=== PATIENT | male | born 1965 | race African-American/Black ===

== ENCOUNTER 2021-10-31 22:10 | Emergency (ER) | payer BC, OTHER ==
[~2021-10-31] VITALS: Ht 182.9 cm; Wt 113.4 kg
[2021-10-31] MEDS ORDERED: OXYCODONE W/ ACETAMINOPHEN 5/325MG TABLET PO ONE (22:45)
[2021-11-01 01:22] VITALS: BP 155/99
[2021-11-01] MEDS ORDERED: PERCOT PO (03:23)
[2021-11-01] MEDS ORDERED: ONDA-144 PO (03:23)
== END 2021-11-01 04:31 | disposition home or self-care (01) ==
LOC: ER 22:13
DX: S62.304A Unspecified fracture of fourth metacarpal bone, right hand, initial encounter for closed fracture (principal); S62.306A Unspecified fracture of fifth metacarpal bone, right hand, initial encounter for closed fracture; V43.52XA Car driver injured in collision with other type car in traffic accident, initial encounter; Y93.89 Activity, other specified; Y92.410 Unspecified street and highway as the place of occurrence of the external cause; Y99.8 Other external cause status
CPT/HCPCS: 29125; 70450; 71045; 73110; 74176

== ENCOUNTER 2024-11-01 09:52 | Inpatient (IN) | payer BC, MEDICAID ==
[~2024-11-01] VITALS: Ht 185.4 cm; Wt 103.9 kg
[~2024-11-01 09:52] MED LIST: ONDA-144 PO; PERCOT PO
--- NOTE | 2024-11-01 10:20 | ED.PDOC ---
General HPI Comments 59 year old male presents to the ED with a chief complaint of LT flank pain onset 3 days. Patient state he has been experiencing LT flank pain radiates to LT back, LLQ for the past 3 days. He has also been experiencing hematuria, dysuria, diarrhea, loss of appetite. PMHx HTN. Denies nausea, vomiting, chest pain, shortness of breath, dizziness, fever, chills. No other symptoms or modifying factors present at this time. Chief Complaint: Abdominal Pain Time Seen by MD: 10:14 Reviewed notes: Medications, Allergies Allergies: Coded Allergies: NO KNOWN ALLERGIES (Unverified , 11/01/24) Home Meds Active Scripts Ondansetron (Zofran) 4 Mg Tab, 4 MG PO BID for 7 Days, #14 MG Prov:ALBANIA GARCÍA MD 11/01/21 Oxycodone W/ Acetaminophen (Percocet 5/325MG) 1 Tab Tb, 1 TAB PO BID for 7 Days, #14 TAB Prov:ALBANIA GARCÍA MD 11/01/21 Information Source: Patient, Spouse Mode of Arrival: Ambulatory Severity: Moderate Timing: Days Duration: Since onset Prehospital treatment: None Onset: Spontaneous Symptoms: Dysuria, Hematuria History of: None Location: (L)Flank Penile discharge: None Modifying factors: None associated signs and symptoms: Abdominal Pain, Flank Pain, Back Pain, Dysuria, Hematuria Past Medical History PAST MEDICAL HISTORY: HTN Surgical History: Denies all surgeries Family History Family History: Reviewed,noncontributory to illness Social History Smoker: Non-Smoker Alcohol: Denies ETOH Use Drugs: Denies Drug Use Lives In: Home Constitutional: denies: chills, diaphoresis, fatigue, fever, malaise, sweats, weakness, others EENTM: denies: blurred vision, double vision, ear bleeding, ear discharge, ear drainage, ear pain, ear ringing, eye pain, eye redness, hearing loss, mouth pain, mouth swelling, nasal discharge, nose bleeding, nose congestion, nose pain, photophobia, tearing, throat pain, throat swelling, voice changes, others Respiratory: denies: cough, hemoptysis, orthopnea, SOB at rest, shortness of breath, SOB with excertion, stridor, wheezing, others Cardiovascular: denies: chest pain, dizzy spells, diaphoresis, Dyspnea on exertion, edema, irregular heart beat, left arm pain, lightheadedness, palpitations, PND, syncope, others Gastrointestinal: reports: abdominal pain, diarrhea, poor appetite; denies: abdomen distended, blood streaked bowels, constipated, dysphagia, difficulty swallowing, hematemesis, melena, nausea, poor fluid intake, rectal bleeding, rectal pain, vomiting, others Genitourinary: reports: dysuria, flank pain (LT), hematuria; denies: burning, frequency, incontinence, penile discharge, penile sore, pain, testicle pain, testicle swelling, urgency, others Neurological: denies: dizziness, fainting, headache, left sided numbness, left sided weakness, numbness, paresthesia, pre-existing deficit, right sided numbness, right sided weakness, seizure, speech problems, tingling, tremors, weakness, others Musculoskeletal: reports: back pain; denies: gout, joint pain, joint swelling, muscle pain, muscle stiffness, neck pain, others Integumetry: denies: bruises, change in color, change in hair/nails, dryness, laceration, lesions, lumps, rash, wounds, others Allergic/Immunocompromised: denies: Difficulty Healing, Frequent Infections, Hives, Itching, others Hematologic/Lymphatic: denies: anemia, blood clots, easy bleeding, easy bruising, swollen glands, others Endocrine: denies: excessive hunger, excessive sweating, excessive thirst, excessive urination, flushing, intolerance to cold, intolerance to heat, unexplained weight gain, unexplained weight loss, others Psychiatric: denies: anxiety, bipolar disorder, depression, hopeless, panic disorder, schizophrenia, sleepless, suicidal, others All Other Systems: Reviewed and Negative Physical Exam General Appearance: Moderate Distress HEENT: Normal ENT Inspection, Pharynx Normal, TMs Normal Neck: Full Range of Motion, Non-Tender, Normal, Normal Inspection Respiratory: Chest Non-Tender, Lungs Clear, No Accessory Muscle Use, No Respiratory Distress, Normal Breath Sounds Cardiovascular: No Edema, No JVD, No Murmur, No Gallop, Normal Peripheral Pulses, Regular Rate/Rhythm Breast Exam: Deferred Gastrointestinal: LLQ, LUQ, No Organomegaly, No Pulsatile Mass, Normal Bowel Sounds, Soft, Tenderness Genitalia: Deferred Pelvic: Deferred Rectal: Deferred Extremities: No calf tenderness, Normal capillary refill, Normal inspection, Normal range of motion, Non-tender, No pedal edema Musculoskeletal : Apperance: Normal Neurologic: Alert, 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 Was a procedure done?: No Differential Diagnosis Kidney stone (Female): N/A Kidney stone (Male): Cholangitis, Pancreatitis, Renal failure, Strain, Urinary obstruction, Urolithiasis X-Ray, Labs, Meds, VS Vital Signs Date Time Temp Pulse Resp B/P (MAP) Pulse Ox O2 Delivery O2 Flow Rate FiO2 11/01/24 10:20 98.9 54 17 149/70 (96) 98 98.9 Lab Test 11/01/24 10:30 Range/Units White Blood Count 8.3 4.4-10.8 10^3/uL Red Blood Count 5.15 4.5-5.90 10^6/uL Hemoglobin 15.4 13.5-17.5 g/dL Hematocrit 45.1 41.0-53.0 % Mean Corpuscular Volume 87.6 80.0-100.0 fL Mean Corpuscular Hemoglobin 30.0 28.0-32.0 pg Mean Corpuscular Hemoglobin Concent 34.2 32.0-36.0 g/dL Red Cell Distribution Width 13.5 11.8-14.3 % Platelet Count 227 140-450 10^3/uL Mean Platelet Volume 9.0 6.9-10.8 fL Neutrophils (%) (Auto) 67.7 37.0-80.0 % Lymphocytes (%) (Auto) 19.3 10.0-50.0 % Monocytes (%) (Auto) 12.4 H 0.0-12.0 % Eosinophils (%) (Auto) 0.0 0.0-7.0 % Basophils (%) (Auto) 0.6 0.0-2.0 % Neutrophils # (Auto) 5.6 1.6-8.6 10 ^3/uL Lymphocytes # (Auto) 1.6 0.4-5.4 10 ^3/uL Monocytes # (Auto) 1.0 0-1.3 10 ^3/uL Eosinophils # (Auto) 0 0-0.8 10 ^3/uL Basophils # (Auto) 0 0-0.2 10 ^3/uL Nucleated Red Blood Cells 0.1 % Sodium Level 135 L 136-145 mmol/L Potassium Level 3.0 L 3.5-5.1 mmol/L Chloride Level 98 98-107 mmol/L Carbon Dioxide Level 27 20-31 mmol/L Anion Gap 10 5-15 Blood Urea Nitrogen 14 9-23 mg/dL Creatinine 1.24 0.700-1.30 mg/dL Glomerular Filtration Rate Calc 67 >90 mL/min BUN/Creatinine Ratio 11.3 10.0-20.0 Serum Glucose 120 H 74-106 mg/dL Calcium Level 9.3 8.7-10.4 mg/dL Total Bilirubin 0.6 0.2-1.0 mg/dL Aspartate Amino Transferase (AST) 27 13-40 U/L Alanine Aminotransferase (ALT) 52 H 7-40 U/L Alkaline Phosphatase 66 46-116 U/L Total Protein 7.9 5.7-8.2 g/dL Albumin 4.8 3.2-4.8 g/dL Current Medications Medications (Trade) Dose Ordered Sig/Conrado Route Start Time Stop Time Status Last Admin Ondansetron HCl (Zofran) 4 mg ONCE ONCE IV 11/01/24 10:30 11/01/24 10:31 DC 11/01/24 11:09 Sodium Chloride 1,000 ml @ 1,000 mls/hr Q1H ONCE IVB 11/01/24 10:30 11/01/24 11:29 DC 11/01/24 11:08 Ketorolac Tromethamine (Toradol Injection) 30 mg ONCE ONCE IV 11/01/24 10:30 11/01/24 10:31 DC 11/01/24 11:08 The patient's CBC is within normal limits The chemistry panel shows hypokalemia at 3.0 The patient was being given potassium IV piggyback The patient was given Zofran 4 mg IV push for the nausea and vomiting The patient was also given ketorolac 30 mg IV push for the pain The patient was bolused with normal saline at 1 L bolus The CAT scan of the abdomen and pelvis shows: IMPRESSION: 1. No acute abdominal or pelvic findings. No hydronephrosis or nephrolithiasis. Sludge in the gallbladder. Subcentimeter right lower quadrant lymph nodes. Mildly prominent bilateral inguinal lymph nodes. Findings are nonspecific. Clinical correlation and continued follow-up is recommended. At this time, the patient was being admitted Images Reviewed?: Images reviewed and evaluated by me Time of 1ST Reevaluation: 10:44 Reevaluation 1ST: Unchanged Patient Education/Counseling: Diagnosis, Treatment, Prognosis Family Education/Counseling: Diagnosis, Treatment, Prognosis Additional Information The following tests were ordered, and results were reviewed by me: CBC, CMP, UA, CT AB PEL WO CON Additional Information was gathered from interviewing the following independent historians: I reviewed and agreed with the following test results read by other providers: CT AB PEL WO CON I discussed treatment and results with medical personnel and: patient, Comprehensive systems review obtained and negative except for what is stated in the HPI. Departure 1 Departure Time of Disposition: 12:01 Impression: Primary Impression: Intractable abdominal pain Additional Impressions: Abdominal pain of unknown etiology Hypokalemia Disposition: ADMITTED INPATIENT Admit to: Med Surg Condition: Fair Critical Care Note Critical Care Time?: No Stability Stability form required: Yes Unstable for transfer: ED Physician Assesment (Clinical assesment) Heart Score Heart Score: Heart Score Response (Comments) Value History N/A 0 EKG N/A 0 Age N/A 0 Risk Factors N/A 0 Troponin N/A 0 Total 0 I personally scribed for EUNICE KELLY MD (ADAM) on 11/01/24 at 10:20. Electronically submitted by Augustina Castor ([email or web address]). I personally scribed for EUNICE KELLY MD ([email or web address]) on 11/01/24 at 10:33. Electronically submitted by Augustina Castro ([email or web address]). I personally scribed for EUNICE KELLY MD ([email or web address]) on 11/01/24 at 10:34. Electronically submitted by Augustina Castro ([email or web address]). EUNICE KELLY MD Nov 01, 2024 10:20
[2024-11-01 10:45] LABS: Basophils # (auto) 0 10 ^3/uL (0-0.2); Basophils % (auto) 0.6 % (0.0-2.0); Eosinophils # (auto) 0 10 ^3/uL (0-0.8); Hematocrit 45.1 % (41.0-53.0); Hemoglobin 15.4 g/dL (13.5-17.5); Lymphocytes # (auto) 1.6 10 ^3/uL (0.4-5.4); Lymphocytes % (auto) 19.3 % (10.0-50.0); Mean Corpuscular Hgb Conc. 34.2 g/dL (32.0-36.0); Mean Corpuscular Volume 87.6 fL (80.0-100.0); Monocytes % (auto) 12.4 % (0.0-12.0); Neutrophils # (auto) 5.6 10 ^3/uL (1.6-8.6); Neutrophils % (auto) 67.7 % (37.0-80.0); Nucleated Red Blood Cells % 0.1 %; Platelet Count (auto) 227 10^3/uL (140-450); Red Blood Cells 5.15 10^6/uL (4.5-5.90); Red Cell Distribution Width 13.5 % (11.8-14.3); White Blood Cell 8.3 10^3/uL (4.4-10.8)
--- NOTE | 2024-11-01 11:02 | DVH ---
Exam: CT CT AB PEL WO CON-NO ORAL OR IV History: Left flank pain and left lower quadrant pain Comparison Study: 10/31/2021 Technique: Multidetector spiral CT of the abdomen and pelvis was performed from lung bases to pubic symphysis. Imaging was performed without IV contrast. Axial, coronal and sagittal multiplanar reform ats were obtained from the axial data set by the technologist. Radiation dose : Abdomen/Pelvis: CTDIvol 21.48 mGy, DLP 1150.73 mGy*cm. Findings: Evaluation of solid organs is limited due to lack of intravenous contrast use. Lung Bases: No acute or significant lung base finding. Normal heart size. No pleural or pericardial effusion. Liver: The liver is normal in size. No focal lesions. Gallbladder and biliary Tree: Sludge in the gallbladder. Spleen: Unremarkable Pancreas: The pancreas is grossly normal in appearance. Adrenal Glands: Unremarkable Kidneys: Kidneys are grossly normal without calculi or hydronephrosis. Bladder: Grossly unremarkable for degree of distention. Bowel: The stomach is grossly normal in appearance. Small bowel and colon are normal in caliber and d istribution. The appendix is not visualized; however, no secondary findings of acute appendicitis nikko ntified. Ascites: Absent Lymphadenopathy: Subcentimeter right lower quadrant lymph nodes. Mildly prominent bilateral inguinal lymph nodes. Abdominal wall and Mesentery: Unremarkable. Vasculature: The visualized abdominal aorta is normal in size and caliber. Evaluation of abdominal a nd pelvic vessels is limited due to lack of intravenous contrast. Pelvic Organs: Unremarkable Musculoskeletal: No aggressive focal bony lesions, acute fractures or dislocation. IMPRESSION: 1. No acute abdominal or pelvic findings. No hydronephrosis or nephrolithiasis. Sludge in the gallbl adder. Subcentimeter right lower quadrant lymph nodes. Mildly prominent bilateral inguinal lymph no roula. Findings are nonspecific. Clinical correlation and continued follow-up is recommended. Radiation optimization: All CT scans at this facility use at least one of these dose optimization vinh hniques: Automated exposure control mA and/or kV adjustment per patient size (includes targeted exams where dose is matched to clinical indication) or iterative reconstruction. HS:Y
[2024-11-01 11:03] LABS: Alkaline Phosphatase 66 U/L (46-116); Anion Gap 10 (5-15); Aspartate Aminotransferase 27 U/L (13-40); BUN/Creatinine Ratio 11.3 (10.0-20.0); Blood Urea Nitrogen 14 mg/dL (9-23); Calcium 9.3 mg/dL (8.7-10.4); Carbon Dioxide 27 mmol/L (20-31); Chloride 98 mmol/L (98-107); Total Protein 7.9 g/dL (5.7-8.2)
[2024-11-01 11:04] LABS: Alanine Aminotransferase 52 U/L (7-40); Albumin 4.8 g/dL (3.2-4.8); Bilirubin, Total 0.6 mg/dL (0.2-1.0); Glucose 120 mg/dL (74-106); Sodium 135 mmol/L (136-145)
[2024-11-01] MEDS: KETOROLAC TROMETH 30 MG/ML 1ML VIAL IV ONE (11:08)
[2024-11-01] MEDS: SODIUM CHLORIDE 0.9% 1,000 ML IVB ONE (11:08)
[2024-11-01] MEDS: ONDANSETRON HCL 4 MG/2 ML VIAL IV ONE (11:09)
[2024-11-01 12:05] VITALS: PULSE 46; RESP 16; O2SAT 97
[2024-11-01] MEDS: MORPHINE SULFATE 4 MG/ML SYR/VIAL IV ONE (12:05)
[2024-11-01] MEDS ORDERED: POTASSIUM CHL 20MEQ/100ML 100 ML IV ONE (12:15)
[2024-11-01 12:36] LABS: Urine Bacteria None Seen /hpf (None Seen)
[2024-11-01 12:55] LABS: Urine Blood 1+ /uL (Negative); Urine Clarity Clear (Clear); Urine Color Yellow (Yellow); Urine Mucus FEW (None Seen); Urine Protein, UAD TRACE (Negative); Urine Specific Gravity 1.019 (1.001-1.035); Urine Squamous Epithelial Cell FEW /hpf (<5); Urine Urobilinogen Normal (Negative); Urine WBC 7 /HPF (0-3)
--- NOTE | 2024-11-01 21:51 | DVHHPRES ---
History of Present Illness Resident Creating Document: MADISYN CARBAJAL RESIDENT History of Present Illness This is a 59-year-old male with past medical history of syphilis at the age of 17, hypertension and prediabetes who presented to the ER with a chief complaint of left-sided flank pain for the past 3 days. Patient reports left-sided flank pain which is sharp starting denied of Thursday while he was doing his routine work, pain radiates from the back to the flank and then the front of the abdomen. Associated with hematuria which was fresh red, otherwise urine is dark yellowish in color. Also says that he has been having nausea, dizziness, chills, dysuria, frequency but denies any incontinence, fever or vomiting. Patient also reports that it hurts in his flank and groin when he has intercourse, but denies any history of STIs or any purulent discharge, patient is monogamous with his . He was seeing multiple partners 13 years ago. He has also been experiencing diarrhea watery 3 episodes in the past 2 days along with dry itchy skin. On arrival to the ER, patient's pulse was 54 bpm, blood pressure 165/76 mmHg, potassium was 3. CT abdomen pelvis showed gallbladder sludge. Right lower quadrant subcentimeter lymph nodes and bilateral inguinal lymph nodes Past medical history: syphilis at the age of 17, hypertension and prediabetes Social history: Lives with , Unemployed, denies smoking, drinks socially, no illicit drug use Home medications amlodipine 10 mg PCP: None Patient seen and examined in the ER. Has left-sided costovertebral tenderness. Kidney ultrasound ordered Smoke: No ALCOHOL: occassional Drugs: None Lives: with Family Review of Systems Constitutional: Yes: Chills, Weakness Gastrointestinal: Nausea, Vomiting, Abdominal Pain Genitourinary: Dysuria, Frequency, Hematuria Skin: Other (Dry itchy skin) Allergies: Coded Allergies: NO KNOWN ALLERGIES (Unverified , 11/01/24) Exam Vital Signs Vital Signs Date Time Temp Pulse Resp B/P (MAP) Pulse Ox O2 Delivery O2 Flow Rate FiO2 11/01/24 12:05 46 16 97 Room Air* 0 21 11/01/24 12:05 165/76 (105) 11/01/24 10:20 98.9 98.9 Exam Patient lying in bed, in no acute distress General: Well-built, afebrile, palor, mucosae are moist Cardiovascular: Regular S1 and S2. No murmurs, gallops or rubs. No JVD elevation. Bilateral 2+ pitting edema Respiratory: Bibasilar crackles heard. Saturating 96 on room air Abdomen: Soft, nontender, nondistended, normoactive bowel sounds, no rebound tenderness, no organomegaly, no masses. Patient has costovertebral angle tenderness of the left Genitourinary: Deferred MSK/skin: Mobilizes 4 limbs. Skin is dry and warm Neurological: No motor, no sensitive deficits, normal speech. Pupils are isocoric and reactive. Psych/Mental Status: A/Ox3 Labs/Xrays Labs Test 11/01/24 10:30 11/01/24 10:19 Range/Units White Blood Count 8.3 4.4-10.8 10^3/uL Red Blood Count 5.15 4.5-5.90 10^6/uL Hemoglobin 15.4 13.5-17.5 g/dL Hematocrit 45.1 41.0-53.0 % Mean Corpuscular Volume 87.6 80.0-100.0 fL Mean Corpuscular Hemoglobin 30.0 28.0-32.0 pg Mean Corpuscular Hemoglobin Concent 34.2 32.0-36.0 g/dL Red Cell Distribution Width 13.5 11.8-14.3 % Platelet Count 227 140-450 10^3/uL Mean Platelet Volume 9.0 6.9-10.8 fL Neutrophils (%) (Auto) 67.7 37.0-80.0 % Lymphocytes (%) (Auto) 19.3 10.0-50.0 % Monocytes (%) (Auto) 12.4 H 0.0-12.0 % Eosinophils (%) (Auto) 0.0 0.0-7.0 % Basophils (%) (Auto) 0.6 0.0-2.0 % Neutrophils # (Auto) 5.6 1.6-8.6 10 ^3/uL Lymphocytes # (Auto) 1.6 0.4-5.4 10 ^3/uL Monocytes # (Auto) 1.0 0-1.3 10 ^3/uL Eosinophils # (Auto) 0 0-0.8 10 ^3/uL Basophils # (Auto) 0 0-0.2 10 ^3/uL Nucleated Red Blood Cells 0.1 % Sodium Level 135 L 136-145 mmol/L Potassium Level 3.0 L 3.5-5.1 mmol/L Chloride Level 98 98-107 mmol/L Carbon Dioxide Level 27 20-31 mmol/L Anion Gap 10 5-15 Blood Urea Nitrogen 14 9-23 mg/dL Creatinine 1.24 0.700-1.30 mg/dL Glomerular Filtration Rate Calc 67 >90 mL/min BUN/Creatinine Ratio 11.3 10.0-20.0 Serum Glucose 120 H 74-106 mg/dL Calcium Level 9.3 8.7-10.4 mg/dL Total Bilirubin 0.6 0.2-1.0 mg/dL Aspartate Amino Transferase (AST) 27 13-40 U/L Alanine Aminotransferase (ALT) 52 H 7-40 U/L Alkaline Phosphatase 66 46-116 U/L Total Protein 7.9 5.7-8.2 g/dL Albumin 4.8 3.2-4.8 g/dL Urine Color Yellow Yellow Urine Clarity Clear Clear Urine pH 6.0 5.0-9.0 Urine Specific [place] 1.019 1.001-1.035 Urine Protein Trace H Negative Urine Ketones Negative Negative Urine Blood 1+ H Negative /uL Urine Nitrite Negative Negative Urine Bilirubin Negative Negative Urine Urobilinogen Normal Negative mg/dL Urine Leukocyte Esterase Negative Negative /uL Urine RBC 11 0 - 3 /hpf Urine Microscopic WBC 7 H 0-3 /HPF Urine Squamous Epithelial Cells Few <5 /hpf Urine Bacteria None seen None Seen /hpf Urine Mucus Few None Seen Urine Glucose Normal Normal mg/dL Assessment/Plan Assessment/Plan Suspected left-sided pyelonephritis secondary to acute cystitis Gallbladder sludge Inguinal lymphadenopathy Sinus bradycardia Hypertension Prediabetes mellitus - 5.8% Hypokalemia History of syphilis Vitamin D defeciency Plan: IV fluids, IV ceftriaxone 1 g daily, urine culture pending Follow up with the EKG, lipid panel, RPR/VDRL Supplemental electrolytes. Keep K greater than 4, Mag greater than 2 Abd U/S shows Hepatomegaly with diffuse hepatic steatosis. Gallbladder sludge. Kidney ultrasound shows Kidneys: The right kidney is 11.6 cm and the left kidney is 11.1 cm. No hydronephrosis, increased echogenicity, shadowing stone, or focal lesion. Continue medication amlodipine 10 mg daily Diet: Cardiac Lovenox 40 mg sc daily Plan discussed with patient in which all questions have been answered Goals of care discussed with the patient for more than 20 minutes, full code status Case discussed with Dr. Maier Plan discussed with: Patient Date of Service: Nov 01, 2024 Billing Provider: АНДРЕЙ MAIER MD Common Visit Codes: 27521-[id number] INP/OBS CARE (HIGH) MADISYN CARBAJAL RESIDENT Nov 01, 2024 21:51
[2024-11-01] MEDS ORDERED: POTASSIUM CHL 20 Meq TABLET PO SCH (22:30)
[2024-11-01] MEDS: POTASSIUM CHL 20 Meq TABLET PO ONE (22:46)
[2024-11-01] MEDS ORDERED: ACETAMINOPHEN 500 MG TAB or CAP PO PRN (23:00)
[2024-11-01] MEDS ORDERED: MORPHINE SULFATE INJ 2 MG/ml SYRG IV PRN (23:00)
[2024-11-01] MEDS ORDERED: KETOROLAC TROMETH 30 MG/ML 1ML VIAL IV PRN (23:00)
[2024-11-01] MEDS ORDERED: HYDROcodone-ACET 5/325MG TAB PO PRN (23:00)
[2024-11-01] MEDS ORDERED: ONDANSETRON HCL 4 MG/2 ML VIAL IV PRN (23:00)
[2024-11-01 23:25] LABS: Amphetamine Screen, Urine Neg (NEGATIVE); Barbiturate Scree,Urine Neg (NEGATIVE); Benzodiazephine Screen, Urine Neg (NEGATIVE); Cannabinoid Screen, Urine Neg (NEGATIVE); Cocaine Screen, Urine Neg (NEGATIVE); Opiate Scree,Urine Neg (NEGATIVE); Phencyclidine Screen, Urine Neg (NEGATIVE)
[2024-11-01] MEDS: amLODIPine BESYLATE 5 MG TAB PO ONE (23:42)
[2024-11-01 23:55] LABS: Albumin 4.8 g/dL (3.2-4.8); Bilirubin, Direct 0.1 mg/dL (<0.3); Bilirubin, Total 0.6 mg/dL (0.2-1.0); CRP High Sensitivity 0.2 mg/dL (<1.0); Total Protein 8.1 g/dL (5.7-8.2)
[2024-11-01 23:58] LABS: Magnesium 2.9 mg/dL (1.6-2.6)
[2024-11-02] VITALS (9 sets, daily range): BP systolic 100–117; BP diastolic 42–67; PULSE 41–76; RESP 16–18; TEMP 98.2–98.9; O2SAT 93–100
[2024-11-02 00:08] LABS: INR 1.05 (0.9-1.15); Partial Thromboplastin Time 25.4 SEC (24.5-34.5); Prothrombin Time 11.1 sec (9.3-11.8)
[2024-11-02] MEDS: cefTRIAXone 1GM/50ML D5W 50 ML IV ONE (00:12)
[2024-11-02 00:28] LABS: Erythrocyte Sedimentation Rate 4 mm/hr (0-20)
--- NOTE | 2024-11-02 01:23 | DVH ---
ABDOMINAL ULTRASOUND CLINICAL HISTORY: Gallbladder sludge TECHNIQUE: Multiple grayscale and color Doppler ultrasound images were obtained of the abdomen. WID: COMPARISON: CT abdomen and pelvis from earlier today FINDINGS: Liver and Biliary System: Increased echogenicity, normal size measuring 19.1 cm. No focal hepatic observations. No intrahepatic bile duct dilatation. The common duct measures 0.4 cm at the juan he patis. The gallbladder normal caliber without cholelithiasis or gallbladder wall thickening. There is sludge In the gallbladder Pancreas: Not well Seen due to overlying bowel gas. Kidneys: The right kidney is 11.6 cm and the left kidney is 11.1 cm. No hydronephrosis, increased echogenicity, shadowing stone, or focal lesion. IMPRESSION: 1. Hepatomegaly with diffuse hepatic steatosis. 2. Gallbladder sludge.
--- NOTE | 2024-11-02 02:05 | ECG ---
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
[2024-11-02 06:50] LABS: Basophils # (auto) 0 10 ^3/uL (0-0.2); Basophils % (auto) 0.4 % (0.0-2.0); Eosinophils # (auto) 0.1 10 ^3/uL (0-0.8); Eosinophils % (auto) 0.8 % (0.0-7.0); Hematocrit 42.1 % (41.0-53.0); Hemoglobin 14.5 g/dL (13.5-17.5); Lymphocytes # (auto) 2.3 10 ^3/uL (0.4-5.4); Lymphocytes % (auto) 29.5 % (10.0-50.0); Mean Corpuscular Hemoglobin 30.2 pg (28.0-32.0); Mean Corpuscular Hgb Conc. 34.4 g/dL (32.0-36.0); Mean Corpuscular Volume 87.8 fL (80.0-100.0); Monocytes % (auto) 12.8 % (0.0-12.0); Neutrophils # (auto) 4.4 10 ^3/uL (1.6-8.6); Neutrophils % (auto) 56.5 % (37.0-80.0); Nucleated Red Blood Cells % 0.1 %; Platelet Count (auto) 206 10^3/uL (140-450); Red Cell Distribution Width 13.5 % (11.8-14.3); White Blood Cell 7.9 10^3/uL (4.4-10.8)
[2024-11-02 07:38] LABS: Albumin 4.3 g/dL (3.2-4.8); Alkaline Phosphatase 59 U/L (46-116); Anion Gap 9 (5-15); Aspartate Aminotransferase 22 U/L (13-40); BUN/Creatinine Ratio 14.7 (10.0-20.0); Bilirubin, Total 0.5 mg/dL (0.2-1.0); Carbon Dioxide 25 mmol/L (20-31); Chloride 101 mmol/L (98-107); Glucose 106 mg/dL (74-106); Total Protein 6.9 g/dL (5.7-8.2)
[2024-11-02 07:41] LABS: Alanine Aminotransferase 42 U/L (7-40); Blood Urea Nitrogen 28 mg/dL (9-23); Potassium 3.4 mmol/L (3.5-5.1); Sodium 135 mmol/L (136-145)
[2024-11-02 07:51] LABS: Triglycerides 115 mg/dL (< 150)
[2024-11-02 07:52] LABS: LDL Cholesterol 83 mg/dL (< 100)
[2024-11-02 07:53] LABS: Cholesterol 140 mg/dL (< 200); HDL Cholesterol 40 mg/dL (40-59)
[2024-11-02] MEDS: ENOXAPARIN SOD 40 MG/0.4 ML SYRINGE SC SCH (09:51)
[2024-11-02] MEDS: cefTRIAXone 1GM/50ML D5W 50 ML IV SCH (09:51)
[2024-11-02] MEDS: ERGOCALCIFEROL 50,000 UNIT(1.25MG) CAP PO SCH (09:55)
[2024-11-02] MEDS: amLODIPine BESYLATE 5 MG TAB PO SCH (09:55)
[2024-11-02 10:04] LABS: Hepatitis B Surface Antibody Negative (Negative); Hepatitis B Surface Antigen Negative (Negative)
[2024-11-02] MEDS: TAMSULOSIN HYDROCHLORIDE 0.4 MG CAP PO ONE (11:57)
[2024-11-02] MEDS: POTASSIUM CHL 20 Meq TABLET PO ONE (11:58)
--- NOTE | 2024-11-02 17:28 | DVHPNRES ---
Progress Note Date Seen: Nov 02, 2024 Resident Creating Document: BORIS SOLIZ RESIDENT Has the PT tested + for MRSA If YES, has PT been informed?: No Medical Necessity Reason Pt with a Central, PICC or Fol: No Reason for wagner catheter: Hospice pt Medical Necessity Reason History of Present Illness This is a 59-year-old male with past medical history of syphilis at the age of 17, hypertension and prediabetes who presented to the ER with a chief complaint of left-sided flank pain for the past 3 days. Patient reports left-sided flank pain which is sharp starting denied of Thursday while he was doing his routine work, pain radiates from the back to the flank and then the front of the abdomen. Associated with hematuria which was fresh red, otherwise urine is dark yellowish in color. Also says that he has been having nausea, dizziness, chills, dysuria, frequency but denies any incontinence, fever or vomiting. Patient also reports that it hurts in his flank and groin when he has intercourse, but denies any history of STIs or any purulent discharge, patient is monogamous with his . He was seeing multiple partners 13 years ago. He has also been experiencing diarrhea watery 3 episodes in the past 2 days along with dry itchy skin. On arrival to the ER, patient's pulse was 54 bpm, blood pressure 165/76 mmHg, potassium was 3. CT abdomen pelvis showed gallbladder sludge. Right lower quadrant subcentimeter lymph nodes and bilateral inguinal lymph nodes Past medical history: syphilis at the age of 17, hypertension and prediabetes Surgery history: None Social history: Lives with , Unemployed, denies smoking, drinks socially, no illicit drug use Home medications amlodipine 10 mg PCP: None PN11/02/2024 Patient is a 59-year-old male with a past medical history of syphilis hypertension on prediabetic admitted to the ED due to left flank pain according to the patient has been going on for about a month. Pain usually comes on during sexual intercourse with his . He also noticed terminal hematuria couple of times. However over the past 3-4 this patient more with persistent left flank pain with radiation to the point with associated terminal hematuria. The pain has just progressively getting worse thus prompting his visit to the ED. Cr: 1.24--> 1.94 Subjective Review of Systems Constitutional: Denies fever no chills no feeling of malaise HEENT: Denies headache, ear pain, ear discharges, conjunctivitis, nasal discharge throat pain Cardiovascular: Denies chest pain, palpitation, orthopnea, PND, or pedal edema Respiratory: Denies shortness of breath, cough cough, sputum production, hemoptysis, GI: Denies abdominal pain, nausea, vomiting, diarrhea, hematemesis, hematochezia, : Denies frequency, urgency; left flank pain, hematuria, Endocrine: Denies unintentional weight gain or weight loss, feeling of hot flashes, Tashi: Denies easy bruising, bleeding disorders, epistaxis Musculoskeletal: Denies joint pains, muscle aches Psych: No evidence of depression, jeny, suicidal ideation Objective vital signs Vital Sign Date Time Temp Pulse Resp B/P (MAP) Pulse Ox O2 Delivery O2 Flow Rate FiO2 11/02/24 14:00 98.0 72 20 101/46 (64) 94 98.0 11/02/24 07:45 Room Air* 0 21 Total Intake and Output 11/01/24 11/01/24 11/02/24 15:00 23:00 07:00 Intake Total 1000 ml 100 ml Balance 1000 ml 100 ml medications Current Medications Medications Dose Ordered Sig/Conrado Route Start Time Stop Time Status Last Admin Dose Admin Amlodipine Besylate 10 mg DAILY PO 11/02/24 10:00 11/02/24 09:55 10 MG Ondansetron HCl 4 mg Q4HPRN PRN IV 11/01/24 23:00 Acetaminophen 500 mg Q4HPRN PRN PO 11/01/24 23:00 Acetaminophen/ Hydrocodone Bitart 1 tab Q4HPRN PRN PO 11/01/24 23:00 Morphine Sulfate 1 mg Q4HPRN PRN IV 11/01/24 23:00 Ketorolac Tromethamine 15 mg Q6HPRN PRN IV 11/01/24 23:00 11/06/24 22:59 Ceftriaxone Sodium 50 ml @ 100 mls/hr DAILY@09 IV 11/02/24 09:00 11/02/24 09:51 100 MLS/HR Enoxaparin Sodium 40 mg DAILY SC 11/02/24 10:00 11/02/24 09:51 40 MG Ergocalciferol 50,000 unit Q7D PO 11/02/24 10:00 11/02/24 09:55 50,000 UNIT Tamsulosin HCl 0.4 mg QPM PO 11/03/24 18:00 Examination General Appearance: Alert, Oriented X3, Cooperative, Mild distress HEENT: Atraumatic, PERRLA, EOMI, Mucous membrane moist/pink Respiratory: Clear to auscultation, Normal air movement Cardiovascular: Regular rate, Normal S1, Normal S2, No murmurs, no chest wall tenderness Abdominal: NO distention, left flank tenderness, bowel sounds present Extremities: No clubbing, No cyanosis, No edema, Normal pulses, No tenderness/swelling Skin: No rashes, No breakdown, No significant lesion Neuro: Normal gait, Normal speech, Strength at 5/5 X4 ext, Normal tone, Sensation intact, Cranial nerves 3-12 NL, Reflexes 2+ Psych/Mental Status: Mental status NL, Mood NL laboratory and microbiology Laboratory Tests 11/02/24 06:00 Test 11/02/24 06:00 Range/Units Serum Glucose 106 74-106 mg/dL Problem List/Assessment/Plan Problem List/Assessment/Plan Assessment Possible left nephrolithiasis --> left flank pain with radiation to the groin --> terminal hematuria --> ? finding on of stone on CT abdomen --> Tamsulosin --> Strain urine Suspected left-sided pyelonephritis secondary to acute cystitis --> ceftriaxone Sinus bradycardia --> patient is to be on at length we will in his 20s has been exercising a long time the last 45 years --> Monitor --> NO beta blockers JOSE MARIA secondary to VMN --> Fluid --> BMP in the AM Hypertension --> Continue amlodipine Hypokalemia --> K: 3.0 --> Replaced -> repeat labs in the AM Mild hyponatremia --> monitor History of sexually transmitted infections --> Syphilis Prediabetes --> A1c: 5.8 Goal of just formalin done 17 minute: Full code Case and plan discussed with Dr. Sow Plan discussed with: Patient My Orders My Orders Orders - BORIS SOLIZ RESIDENT Procedure Category Date Status Time Regular Diet DIET 11/02/24 Transmitted Lunch Strain All Urine For JASON 11/02/24 In Process Stones 11:45 Tamsulosin PHA 11/03/24 In Process Hydrochloride (Flomax) 18:00 Date of Service: Nov 02, 2024 Billing Provider: LIAT SOW MD Common Visit Codes: [id number] INP/OBS CARE(HIGH) BORIS SOLIZ RESIDENT Nov 02, 2024 17:27 LIAT SOW MD November 04, 2024 19:19
[2024-11-02] MEDS: SODIUM CHLORIDE 0.9% 1,000 ML IV SCH (18:18)
[2024-11-03] VITALS (7 sets, daily range): BP systolic 101–150; BP diastolic 40–76; PULSE 47–68; RESP 16–18; TEMP 98.2–98.8; O2SAT 95–100
[2024-11-03 07:05] LABS: Chloride 107 mmol/L (98-107); Sodium 141 mmol/L (136-145)
[2024-11-03 07:06] LABS: Anion Gap 9 (5-15); Carbon Dioxide 25 mmol/L (20-31)
[2024-11-03 07:10] LABS: Calcium 8.5 mg/dL (8.7-10.4); Potassium 3.3 mmol/L (3.5-5.1)
[2024-11-03 07:11] LABS: BUN/Creatinine Ratio 12.9 (10.0-20.0); Blood Urea Nitrogen 17 mg/dL (9-23)
[2024-11-03 07:12] LABS: Glucose 126 mg/dL (74-106)
--- NOTE | 2024-11-03 11:54 | DVHDSRES ---
Discharge Summary Date of Admission Resident Creating Document: BORIS SOLIZ RESIDENT Nov 01, 2024 at 21:50 Date of Discharge: November 03, 2024 Admitting Diagnosis Left flank pain Labs/Diagnostic Data: PATIENT: COREY RODRIGUEZ ACCT: [id number] UNIT: [id number] : 1965 LOC: OVERFLOW ROOM / BED: [facility] / A AGE / SEX: 59 / M ADM STATUS: ADM IN SERVICE [id number] ORDERING PHYSICIAN: MADISYN CARBAJAL PROCEDURE(s): LIVUS - LIVER REASON: Gallbladder sludge ORDER NUMBER(s): [id number], ACCESSION NUMBER(s): [id number] ABDOMINAL ULTRASOUND CLINICAL HISTORY: Gallbladder sludge TECHNIQUE: Multiple grayscale and color Doppler ultrasound images were obtained of the abdomen. WID: COMPARISON: CT abdomen and pelvis from earlier today FINDINGS: Liver and Biliary System: Increased echogenicity, normal size measuring 19.1 cm. No focal hepatic observations. No intrahepatic bile duct dilatation. The common duct measures 0.4 cm at the juan hepatis. The gallbladder normal caliber without cholelithiasis or gallbladder wall thickening. There is sludge In the gallbladder Pancreas: Not well Seen due to overlying bowel gas. Kidneys: The right kidney is 11.6 cm and the left kidney is 11.1 cm. No hydronephrosis, increased echogenicity, shadowing stone, or focal lesion. IMPRESSION: 1. Hepatomegaly with diffuse hepatic steatosis. 2. Gallbladder sludge. ATED BY: MARGAUX BOOTH MD DICTATED DATE/TIME: 11/02/24 0120 PATIENT: COREY RODRIGUEZ ACCT: [id number] UNIT: [id number] : 1965 LOC: ER ROOM / BED: / AGE / SEX: 59 / M ADM STATUS: REG ER SERVICE 1019 ORDERING PHYSICIAN: EUNICE KELLY MD PROCEDURE(s): ABPL - CT AB PEL WO CON-NO ORAL OR IV REASON: Left flank pain and left lower quadrant pain ORDER NUMBER(s): [id number], ACCESSION NUMBER(s): [id number] Exam: CT CT AB PEL WO CON-NO ORAL OR IV History: Left flank pain and left lower quadrant pain Comparison Study: 10/31/2021 Technique: Multidetector spiral CT of the abdomen and pelvis was performed from lung bases to pubic symphysis. Imaging was performed without IV contrast. Axial, coronal and sagittal multiplanar reformats were obtained from the axial data set by the technologist. Radiation dose : Abdomen/Pelvis: CTDIvol 21.48 mGy, DLP 1150.73 mGy*cm. Findings: Evaluation of solid organs is limited due to lack of intravenous contrast use. Lung Bases: No acute or significant lung base finding. Normal heart size. No pleural or pericardial effusion. Liver: The liver is normal in size. No focal lesions. Gallbladder and biliary Tree: Sludge in the gallbladder. Spleen: Unremarkable Pancreas: The pancreas is grossly normal in appearance. Adrenal Glands: Unremarkable Kidneys: Kidneys are grossly normal without calculi or hydronephrosis. Bladder: Grossly unremarkable for degree of distention. Bowel: The stomach is grossly normal in appearance. Small bowel and colon are normal in caliber and distribution. The appendix is not visualized; however, no secondary findings of acute appendicitis identified. Ascites: Absent Lymphadenopathy: Subcentimeter right lower quadrant lymph nodes. Mildly prominent bilateral inguinal lymph nodes. Abdominal wall and Mesentery: Unremarkable. Vasculature: The visualized abdominal aorta is normal in size and caliber. Evaluation of abdominal and pelvic vessels is limited due to lack of intravenous contrast. Pelvic Organs: Unremarkable Musculoskeletal: No aggressive focal bony lesions, acute fractures or dislocation. IMPRESSION: 1. No acute abdominal or pelvic findings. No hydronephrosis or nephrolithiasis. Sludge in the gallbladder. Subcentimeter right lower quadrant lymph nodes. Mildly prominent bilateral inguinal lymph nodes. Findings are nonspecific. Clinical correlation and continued follow-up is recommended. Radiation optimization: All CT scans at this facility use at least one of these dose optimization techniques: Automated exposure control mA and/or kV adjustment per patient size (includes targeted exams where dose is matched to clinical indication) or iterative reconstruction. HS:Y ATED BY: OLE HERNANDEZ MD DICTATED DATE/TIME: 11/01/24 1100 Laboratory Results Test 11/03/24 05:05 11/02/24 06:00 11/01/24 23:34 11/01/24 10:30 Sodium Level 141 mmol/L (136-145) Potassium Level 3.3 mmol/L (3.5-5.1) Chloride Level 107 mmol/L (98-107) Carbon Dioxide Level 25 mmol/L (20-31) Anion Gap 9 (5-15) Blood Urea Nitrogen 17 mg/dL (9-23) Creatinine 1.32 mg/dL (0.700-1.30) Glomerular Filtration Rate Calc 62 mL/min (>90) BUN/Creatinine Ratio 12.9 (10.0-20.0) Serum Glucose 126 mg/dL (74-106) Calcium Level 8.5 mg/dL (8.7-10.4) White Blood Count 7.9 10^3/uL (4.4-10.8) Red Blood Count 4.80 10^6/uL (4.5-5.90) Hemoglobin 14.5 g/dL (13.5-17.5) Hematocrit 42.1 % (41.0-53.0) Mean Corpuscular Volume 87.8 fL (80.0-100.0) Mean Corpuscular Hemoglobin 30.2 pg (28.0-32.0) Mean Corpuscular Hemoglobin Concent 34.4 g/dL (32.0-36.0) Red Cell Distribution Width 13.5 % (11.8-14.3) Platelet Count 206 10^3/uL (140-450) Mean Platelet Volume 9.6 fL (6.9-10.8) Neutrophils (%) (Auto) 56.5 % (37.0-80.0) Lymphocytes (%) (Auto) 29.5 % (10.0-50.0) Monocytes (%) (Auto) 12.8 % (0.0-12.0) Eosinophils (%) (Auto) 0.8 % (0.0-7.0) Basophils (%) (Auto) 0.4 % (0.0-2.0) Neutrophils # (Auto) 4.4 10 ^3/uL (1.6-8.6) Lymphocytes # (Auto) 2.3 10 ^3/uL (0.4-5.4) Monocytes # (Auto) 1.0 10 ^3/uL (0-1.3) Eosinophils # (Auto) 0.1 10 ^3/uL (0-0.8) Basophils # (Auto) 0 10 ^3/uL (0-0.2) Nucleated Red Blood Cells 0.1 % Total Bilirubin 0.5 mg/dL (0.2-1.0) Aspartate Amino Transferase (AST) 22 U/L (13-40) Alanine Aminotransferase (ALT) 42 U/L (7-40) Alkaline Phosphatase 59 U/L (46-116) Total Protein 6.9 g/dL (5.7-8.2) Albumin 4.3 g/dL (3.2-4.8) Triglycerides Level 115 mg/dL (< 150) Cholesterol Level 140 mg/dL (< 200) LDL Cholesterol 83 mg/dL (< 100) HDL Cholesterol 40 mg/dL (40-59) Erythrocyte Sedimentation Rate 4 mm/hr (0-20) Prothrombin Time 11.1 sec (9.3-11.8) Prothrombin Time INR 1.05 (0.9-1.15) Activated Partial Thromboplast Time 25.4 SEC (24.5-34.5) Thyroid Stimulating Hormone (TSH) 1.60 uIU/mL (0.55-4.78) Hepatitis B Surface Antigen Negative (Negative) Hepatitis B Surface Antibody Negative (Negative) Hepatitis C Antibody Negative (Negative) HIV (1&2) Antibody Negative (Negative) Hemoglobin A1c 5.8 % A1C (<5.7) Magnesium Level 2.9 mg/dL (1.6-2.6) Direct Bilirubin 0.1 mg/dL (<0.3) Troponin I High Sensitivity 16 ng/L (</=54) C-Reactive Protein High Sensitivity 0.20 mg/dL (<1.0) B-Type Natriuretic Peptide 47.94 pg/mL (0-100) Vitamin B12 Level 598 pg/mL (211-911) Vitamin D 25-Hydroxy 26.1 ng/mL (30.0-100) Test 11/01/24 10:19 Urine Color Yellow (Yellow) Urine Clarity Clear (Clear) Urine pH 6.0 (5.0-9.0) Urine Specific [place] 1.019 (1.001-1.035) Urine Protein Trace (Negative) Urine Ketones Negative (Negative) Urine Blood 1+ /uL (Negative) Urine Nitrite Negative (Negative) Urine Bilirubin Negative (Negative) Urine Urobilinogen Normal mg/dL (Negative) Urine Leukocyte Esterase Negative /uL (Negative) Urine RBC 11 /hpf (0 - 3) Urine Microscopic WBC 7 /HPF (0-3) Urine Squamous Epithelial Cells Few /hpf (<5) Urine Bacteria None seen /hpf (None Seen) Urine Mucus Few (None Seen) Urine Glucose Normal mg/dL (Normal) Urine Opiates Screen Neg (NEGATIVE) Urine Fentanyl Screen Neg (NEGATIVE) Urine Barbiturates Screen Neg (NEGATIVE) Urine Phencyclidine Screen Neg (NEGATIVE) Urine Amphetamines Screen Neg (NEGATIVE) Urine Benzodiazepines Screen Neg (NEGATIVE) Urine Cocaine Screen Neg (NEGATIVE) Urine Cannabinoids Screen Neg (NEGATIVE) Other Laboratory Tests 11/03/24 05:05 11/02/24 06:00 Brief Hx & Hospital Course: History of Present Illness This is a 59-year-old male with past medical history of syphilis at the age of 17, hypertension and prediabetes who presented to the ER with a chief complaint of left-sided flank pain for the past 3 days. Patient reports left-sided flank pain which is sharp starting denied of Thursday while he was doing his routine work, pain radiates from the back to the flank and then the front of the abdomen. Associated with hematuria which was fresh red, otherwise urine is dark yellowish in color. Also says that he has been having nausea, dizziness, chills, dysuria, frequency but denies any incontinence, fever or vomiting. Patient also reports that it hurts in his flank and groin when he has intercourse, but denies any history of STIs or any purulent discharge, patient is monogamous with his . He was seeing multiple partners 13 years ago. He has also been experiencing diarrhea watery 3 episodes in the past 2 days along with dry itchy skin. On arrival to the ER, patient's pulse was 54 bpm, blood pressure 165/76 mmHg, potassium was 3. CT abdomen pelvis showed gallbladder sludge. Right lower quadrant subcentimeter lymph nodes and bilateral inguinal lymph nodes Past medical history: syphilis at the age of 17, hypertension and prediabetes Surgery history: None Social history: Lives with , Unemployed, denies smoking, drinks socially, no illicit drug use Home medications amlodipine 10 mg PCP: None Brief Hospital course Patient is a 59-year-old male with a past medical history of syphili, hypertension and prediabetic admitted to the ED due to left flank pain according to the patient has been going on for about a month. Pain usually comes on during sexual intercourse with his . He also noticed terminal hematuria couple of times. However over the past 3-4 this patient more with persistent left flank pain with radiation to the point with associated terminal hematuria. The pain has just progressively getting worse thus prompting his visit to the ED. Cr: 1.24--> 1.94. He has received antibiotics for possible pyelonephritis; tamsulosin and adequate hydration given for nephrolithiasis. His pain is improved. He has not seen any terminal hematuria and his kidney function has improved as well. Patient encouraged to continue to hydrate, strain his urine and follow up at the D/C clinic in a week. Review of Systems Constitutional: Denies fever no chills no feeling of malaise HEENT: Denies headache, ear pain, ear discharges, conjunctivitis, nasal discharge throat pain Cardiovascular: Denies chest pain, palpitation, orthopnea, PND, or pedal edema Respiratory: Denies shortness of breath, cough cough, sputum production, hemoptysis, GI: Denies abdominal pain, nausea, vomiting, diarrhea, hematemesis, hematochezia, : Denies frequency, urgency; left flank pain, hematuria, Endocrine: Denies unintentional weight gain or weight loss, feeling of hot flashes, Tashi: Denies easy bruising, bleeding disorders, epistaxis Musculoskeletal: Denies joint pains, muscle aches Psych: No evidence of depression, jeny, suicidal ideation Examination General Appearance: Alert, Oriented X3, Cooperative, HEENT: Atraumatic, PERRLA, EOMI, Mucous membrane moist/pink Respiratory: Clear to auscultation, Normal air movement Cardiovascular: Regular rate, Normal S1, Normal S2, No murmurs, no chest wall tenderness Abdominal: NO distention, left flank tenderness improved, bowel sounds present Extremities: No clubbing, No cyanosis, No edema, Normal pulses, No tenderness/swelling Skin: No rashes, No breakdown, No significant lesion Neuro: Normal gait, Normal speech, Strength at 5/5 X4 ext, Normal tone, Sensation intact, Cranial nerves 3-12 NL, Reflexes 2+ Psych/Mental Status: Mental status NL, Mood NL Diagnoses Possible left nephrolithiasis Suspected left-sided pyelonephritis secondary to acute cystitis Sinus bradycardia JOSE MARIA secondary to VMN Hypertension Hypokalemia Mild hyponatremia History of sexually transmitted infections Prediabetes Discharge plan Stable to go home adequate hydration Complete the antibiotics regime follow up at the D/C clinic in a 1week IF he still has terminal hematuria, will refer him to urology to rule out cancer. Discharge plan discussed + Dr. Porras Condition at Discharge: Good Final Diagnosis/Problems List Possible left nephrolithiasis Suspected left-sided pyelonephritis secondary to acute cystitis Sinus bradycardia JOSE MARIA secondary to VMN Hypertension Hypokalemia Mild hyponatremia History of sexually transmitted infections Prediabetes Discharge Disposition: Home Discharge Instruct/Medications Diet: Regular Activity: No Restrictions, As Tolerated Follow Up/Referral: 7-14 days at the discharge clinic Medications: Ciprofloxacin 500mg daily for 3 days Tamsulosin Discharge Statement: "Patient was advised to return to the ER or call 911 if any headaches, dizziness, shortness of breath, chest pain, abdominal pain, bleeding, fevers, or worsening of medical condition. Patient was counseled about treatment plan, medications, possible side effects, patientverbalized understanding. All questions were answered to the best of my ability. This discharge took greater then 30 minutes in planning, reviewing documentation, counseling the patient, and discussing with other team members." ASSESSMENT ASSESSMENT Assessment Possible left nephrolithiasis Suspected left-sided pyelonephritis secondary to acute cystitis Sinus bradycardia JOSE MARIA secondary to VMN Hypertension Hypokalemia Mild hyponatremia History of sexually transmitted infections Prediabetes Date of Service: November 03, 2024 Billing Provider: LIAT PORRAS MD Common Visit Codes: [id number]/[id number] DISCH DAY >30min BORIS SOLIZ RESIDENT November 03, 2024 11:54 LIAT PORRAS MD November 04, 2024 19:26
[2024-11-03] MEDS ORDERED: AML5T PO (12:15)
[2024-11-03] MEDS ORDERED: CIPR500T4 PO (12:15)
[2024-11-03] MEDS ORDERED: TAMS0.4C39 PO (12:15)
[2024-11-03] MEDS ORDERED: TAMSULOSIN HYDROCHLORIDE 0.4 MG CAP PO SCH (18:00)
== END 2024-11-03 13:55 | disposition home or self-care (01) | DRG 463 ==
LOC: ER 09:52 → OVERFLOW 21:50 → TELE-WESTW 11-02 18:55
PROVIDERS: ADMIT Student in an Organized Health Care Education/Training Program; ATTEND Student in an Organized Health Care Education/Training Program
DX: N10 Acute pyelonephritis (principal); N17.0 Acute kidney failure with tubular necrosis; E87.1 Hypo-osmolality and hyponatremia; N20.0 Calculus of kidney; E87.6 Hypokalemia; R73.03 Prediabetes; I10 Essential (primary) hypertension; R59.0 Localized enlarged lymph nodes; Z79.899 Other long term (current) drug therapy
CPT/HCPCS: 36415; 74176; 76705; 80048; 80053; 80061; 80076; 80307; 81001; 82306; 82607; 83036; 83735; 83880; 84443; 84484; 85025; 85610; 85652; 85730; 86141; 86703; 86706; 86803; 87086; 87340; 93005; 96361; 96374; 96375; G0378; J1885; J2405; J3480